=== PATIENT | female | born 1990 | race American Indian/Alaskan Native ===

== ENCOUNTER 2018-08-02 14:30 | Emergency (ER) | payer OTHER, MEDICARE ==
[2018-08-02] MEDS ORDERED: NACL 0.9% 1000 ML 1,000 ML IV ONE (16:01)
--- NOTE | 2018-08-02 16:04 | Emergency Department Report ---
Blank Doc - Documentation Documentation: This is a 28-year-old female that presents with abdominal pain x 3 days. Camila ent reports pain increased today. She went to Urgent Care who did several test and told her to f/u in the emergency room. Pain is sharp to RUQ. Denies nausea/vomiting or diarrhea. LMP 07/30/2018. RLQ tenderness on focal exam. This initial assessment diagnostic orders/clinical plan/treatment(s) is/are subject to change based on patient's health status, clinical progression and re- assessment by fellow clinical providers in the ED. Further treatment and workup at subsequent clinical providers discretion. Patient/guardians urged not to elope from ED s their condition may be serious if not clinically assessed and managed. Initial orders include: Ordered labs Fast [facility] for evaluation.
[2018-08-02 16:36] LABS: Basophils % (Auto) 0.6 % (0.0-1.8); Eosinophils # (Auto) 0.1 K/mm3 (0.0-0.4); Eosinophils % (Auto) 1.1 % (0.0-4.3); Hematocrit 42.4 % (30.3-42.9); Hemoglobin 13.7 gm/dl (10.1-14.3); Lymphocytes # (Auto) 1.8 K/mm3 (1.2-5.4); Mean Corpuscular HGB Conc 32 % (30-34); Mean Corpuscular Volume 82 fl (79-97); Monocytes # (Auto) 0.4 K/mm3 (0.0-0.8); Monocytes % (Auto) 6.4 % (0.0-7.3); Platelet Count 384 K/mm3 (140-440); Red Blood Count 5.14 M/mm3 (3.65-5.03); Red Cell Distribution Width 14.4 % (13.2-15.2)
[2018-08-02 16:57] LABS: BUN/Creatinine Ratio 16; Blood Urea Nitrogen 11 mg/dL (7-17); Calcium 8.8 mg/dL (8.4-10.2)
[2018-08-02 16:58] LABS: Alanine Aminotransferase 10 units/L (7-56); Hemolysis Index 9
--- NOTE | 2018-08-02 18:03 | Cat Scan Report ---
FINAL REPORT EXAM: CT ABDOMEN PELVIS WO CON HISTORY: RLQ tenderness TECHNIQUE: CT examination of the ABDOMEN without IV contrast CT examination of the PELVIS without IV contrast PRIORS: None. 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 No acute fracture. Normal noncontrast appearance of the liver, gallbladder, adrenals, pancreas, and spleen. Normal calib er abdominal aorta and IVC. No renal calculus or hydronephrosis. No proximal ureteral distention. Dis wil ureters are obscured by adjacent anatomy. Small fat containing umbilical hernia. No inguinal hernia. No retroperitoneal adenopathy. No evidence of mesenteric mass. Normal-appearing stomach and duodenum. No small bowel distention in the abdomen and pelvis. Nonspecific slight pelvic free fluid may be reactive. Normal-appearing urinary bladder, uterus, left adnexa, and rectum. Tampon in vagina. Normal-appearing sigmoid colon. No gross ascites, free air, or colonic distention. Normal-appearing cecum and termina l ileum. Visible portion of the appendix appears normal. Smoothly marginated heterogeneous mass is noted in the right adnexa with maximum dimension of 4.4 cm. It contains mostly fat but also contains soft tissue and calcification. The most likely consideratio n is an ovarian dermoid. 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
[2018-08-02 18:13] LABS: Bilirubin,Urine NEG (Negative); Blood,Urine NEG (Negative); Color,Urine Yellow (Yellow); Mucus,Urine FEW /HPF; Protein,Urine <15 mg/dL mg/dL (Negative); Urobilinogen,Urine < 2.0 mg/dL (<2.0)
[2018-08-02 20:11] VITALS: BP 113/69
--- NOTE | 2018-08-02 21:23 | Emergency Department Report ---
HPI - General Chief Complaint: Abdominal Pain Time Seen by Provider: 08/02/18 15:58 - HPI HPI: 28-year-old female presents to the emergency department with the complaint of a 2 to three-day history of some right-sided abdominal pain. She denies any nausea, vomiting, diarrhea, dysuria, vaginal bleeding or discharge, fever. She has not taken anything for her symptoms prior to presentation. The patient went to an urgent care center to the emergency department for an ultrasound. She saw the mid-level provider through triage and a CT scan of the abdomen and pelvis was ordered. She does not have any past medical history. ED Past Medical Hx - Past Medical History Previous Medical History?: No - Surgical History Past Surgical History?: No - Social History Smoking Status: Never Smoker Substance Use Type: Alcohol - Medications Home Medications: Home Medications Medication Instructions Recorded Confirmed Last Taken Type HYDROcodone/APAP 5-325 [[place] 1 each PO Q6HR PRN #12 tablet 08/02/18 Unknown Rx 5/325] ED Review of Systems ROS: Stated complaint: DOCTOR REFERRAL/ULTRASOUND Other details as noted in HPI Comment: All other systems reviewed and negative Constitutional: denies: chills, fever Eyes: denies: eye pain, vision change ENT: denies: ear pain, throat pain Respiratory: denies: cough, shortness of breath Cardiovascular: denies: chest pain, palpitations Gastrointestinal: abdominal pain. denies: nausea, vomiting, diarrhea Genitourinary: denies: dysuria, discharge Musculoskeletal: denies: back pain, arthralgia Skin: denies: rash, lesions Neurological: denies: headache, weakness Physical Exam - Physical Exam Vital Signs: Vital Signs 08/02/18 08/02/18 08/02/18 15:58 20:07 20:11 Temperature 98.0 F 97.6 F Pulse Rate 78 77 Respiratory 20 16 16 Rate Blood Pressure 110/73 Blood Pressure 113/69 [Right] O2 Sat by Pulse 100 98 100 Oximetry Physical Exam: GENERAL: The patient is well-developed well-nourished. HEENT: Normocephalic. Atraumatic. Patient has moist mucous membranes. EYES: Extraocular motions are intact. NECK: Supple. Trachea is midline. CHEST/LUNGS: Clear to auscultation. There is no respiratory distress noted. HEART/CARDIOVASCULAR: Regular. There is no tachycardia. There is no obvious murmur. ABDOMEN: Abdomen is soft. Right-sided abdominal tenderness to palpation. No guarding. Patient has normal bowel sounds. There is no abdominal distention. SKIN: Skin is warm and dry. NEURO: The patient is awake, alert, and oriented. The patient is cooperative. The patient has no focal neurologic deficits. The patient has normal speech. MUSCULOSKELETAL: There is no tenderness or deformity. There is no evidence of acute injury. ED Course Vital Signs 08/02/18 08/02/18 08/02/18 15:58 20:07 20:11 Temperature 98.0 F 97.6 F Pulse Rate 78 77 Respiratory 20 16 16 Rate Blood Pressure 110/73 Blood Pressure 113/69 [Right] O2 Sat by Pulse 100 98 100 Oximetry ED Medical Decision Making - Lab Data Result diagrams: 08/02/18 16:11 08/02/18 16:11 - Radiology Data Radiology results: report reviewed EXAM: CT ABDOMEN PELVIS WO CON HISTORY: RLQ tenderness TECHNIQUE: CT examination of the ABDOMEN without IV contrast CT examination of the PELVIS without IV contrast PRIORS: None. 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 No acute fracture. Normal noncontrast appearance of the liver, gallbladder, adrenals, pancreas, and spleen. Normal caliber abdominal aorta and IVC. No renal calculus or hydronephrosis. No proximal ureteral distention. Distal ureters are obscured by adjacent anatomy. Small fat containing umbilical hernia. No inguinal hernia. No retroperitoneal adenopathy. No evidence of mesenteric mass. Normal-appearing stomach and duodenum. No small bowel distention in the abdomen and pelvis. Nonspecific slight pelvic free fluid may be reactive. Normal-appearing urinary bladder, uterus, left adnexa, and rectum. Tampon in vagina. Normal- appearing sigmoid colon. No gross ascites, free air, or colonic distention. Normal-appearing cecum and terminal ileum. Visible portion of the appendix appears normal. Smoothly marginated heterogeneous mass is noted in the right adnexa with maximum dimension of 4.4 cm. It contains mostly fat but also contains soft tissue and calcification. The most likely consideration is an ovarian dermoid. 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 Labs are unremarkable including CBC, CMP, lipase. No urinary tract infection and the patient is not . She had a CT scan of the abdomen and pelvis done that showed a right adnexal mass that appears consistent with something like a dermoid cyst. Otherwise there are no other intra-abdominal or pelvic pathology noted. Vital signs stable. He course. The patient says that her abdominal pain has improved since being in the emergency department, even without any treatment. The patient has follow-up with [facility] for [employer] needs. I discussed the imaging results and the possibility of a dermoid cyst versus some other nonspecific adnexal mass and she will follow up with the [employer]. She will return to the ER if any worsening of her symptoms or any acute distress. - Differential Diagnosis cholelithiasis, cholecystitis, appendicitis, colitis, ovarian cyst Critical Care Time: No Critical care attestation.: If time is entered above; I have spent that time in minutes in the direct care of this critically ill patient, excluding procedure time. ED Disposition Clinical Impression: Adnexal mass, Dermoid cyst Disposition: -01 TO HOME OR SELFCARE Is pt being admited?: No Condition: Stable Instructions: Ovarian Cyst (ED), Abdominal Pain (ED) Additional Instructions: Please follow-up with your [employer] regarding the right ovarian/adnexal mass that was found on the CT scan. Return to the emergency Department with any worsening of your symptoms or any acute distress. You have been prescribed a medication that can be sedating. Therefore, this medication cannot be taken prior to driving, working, being responsible for children, and cannot be mixed with alcohol of any quantity. Prescriptions: HYDROcodone/APAP 5-325 [[place] 5/325] 1 each PO Q6HR PRN #12 tablet PRN Reason: Pain Referrals: [facility] [Provider Group] - 2-3 Days Forms: Work/School Release Form(ED) Time of Disposition: 21:23
== END 2018-08-02 21:29 | disposition home or self-care (01) ==
LOC: ED 14:30
DX: D35.00 Benign neoplasm of unspecified adrenal gland (principal)
CPT/HCPCS: 36415; 74176; 80053; 81001; 83690; 84703; 85025